=== PATIENT | female | born 1980 ===

== ENCOUNTER 2025-05-25 10:15 | Inpatient (IN) | payer OTHER ==
[~2025-05-25] VITALS: Ht 165.1 cm; Wt 139.3 kg
[2025-05-25 11:55] VITALS: BP 152/98
[2025-05-25] MEDS ORDERED: LOSARTAN POTASS25 MG (11:56)
[2025-05-25] MEDS ORDERED: PROPRANOLOL 20 MG (11:56)
[2025-05-25] MEDS ORDERED: [UNRECOGNIZED DRUG - OTHER] (11:57)
[2025-05-25] MEDS ORDERED: ATORVASTATIN CA10 MG (11:57)
[2025-05-31] MEDS ORDERED: DEXAMETHASONE SODIUM PHOSPHATE 4 MG/ML VIAL ONE (07:06)
[2025-05-31] MEDS ORDERED: RINGERS SOLUTION,LACTATED 1,000 ML IV SCH (10:00)
[2025-05-31] MEDS ORDERED: SODIUM CHLORIDE 0.45 % 1,000 ML IV SCH (10:00)
[2025-05-31] MEDS ORDERED: ONDANSETRON HCL 2 MG/ML VIAL IV PRN (10:00)
[2025-05-31] MEDS ORDERED: ONDANSETRON HCL 2 MG/ML VIAL IV ONE (10:35)
[2025-05-31] MEDS ORDERED: ENALAPRILAT DIHYDRATE 1.25 MG/ML VIAL IV PRN (10:45)
[2025-05-31 16:00] VITALS: BP 132/75; O2SAT 97
[2025-05-31] MEDS ORDERED: CYCLOBENZAPRINE HCL 5 MG TABLET PO SCH (17:00)
[2025-05-31] MEDS ORDERED: TRAMADOL HCL 50 MG TABLET PO SCH (17:00)
[2025-05-31] MEDS ORDERED: ACETAMINOPHEN 500 MG GEL..CAP PO SCH (17:00)
[2025-05-31] MEDS ORDERED: DIPHENHYDRAMINE HCL 75 MG,LIDOCAINE HCL 30 ML,MAG HYDROX/ALUMINUM HYD/SIMETH 30 ML PO SCH (17:00)
[2025-05-31] MEDS ORDERED: Calcium Carbonate 1 TAB TABLET PO SCH (21:00)
[2025-05-31] MEDS ORDERED: PANTOPRAZOLE SODIUM 40 MG/VIAL VIAL IV PUSH SCH (21:00)
[2025-05-31] MEDS ORDERED: MAG HYDROX/ALUMINUM HYD/SIMETH 30 ML BLIST.PACK PO ONE (22:29)
[2025-06-01 02:50] VITALS: BP 115/82; O2SAT 98
[2025-06-01] MEDS ORDERED: MAG HYDROX/ALUMINUM HYD/SIMETH 30 ML BLIST.PACK PO ONE (07:59)
[2025-06-01 08:00] VITALS: BP 106/63; O2SAT 97
[2025-06-01] MEDS ORDERED: LOSARTAN POTASSIUM 25 MG TABLET PO SCH (09:00)
[2025-06-01] MEDS ORDERED: LOSARTAN POTASSIUM 100 MG TABLET PO SCH (09:00)
[2025-06-01] MEDS ORDERED: PROPRANOLOL HCL 20 MG TABLET PO SCH (09:00)
[2025-06-01] MEDS ORDERED: ATORVASTATIN CALCIUM 10 MG TABLET PO SCH (09:00)
== END 2025-06-01 16:31 | disposition home or self-care (01) | DRG 627 ==
LOC: SURH 05-31 06:00 → O/R 05-31 06:00 → SURH 05-31 10:15
PROVIDERS: ADMIT Surgery; ATTEND Surgery
PROC: 0GTH0ZZ Resection of Right Thyroid Gland Lobe, Open Approach (ICD-10-PCS; principal; 2025-05-31 12:45)
DX: E05.00 Thyrotoxicosis with diffuse goiter without thyrotoxic crisis or storm (principal)